=== PATIENT | male | born 2000 | race Two or more races ===

== ENCOUNTER 2024-06-11 19:43 | Emergency (ER) | payer OTHER ==
[~2024-06-11] VITALS: Ht 170.2 cm; Wt 64.0 kg
[2024-06-11 20:47] VITALS: BP 104/71; PULSE 86; RESP 16; TEMP 98.1; O2SAT 98
== END 2024-06-11 20:48 | disposition home or self-care (01) ==
LOC: ER 19:45
DX: B34.9 Viral infection, unspecified (principal); Z88.1 Allergy status to other antibiotic agents
CPT/HCPCS: 99281